=== PATIENT | female | born 1935 | race Caucasian/White ===

== ENCOUNTER 2016-07-17 14:36 | Emergency (ER) | payer MEDICARE, OTHER ==
[~2016-07-17 14:36] MED LIST: ASPIRIN PO; DARVOCET-N 1001 TAB PO; FIORINAL CAPSUL1 CAP PO; HCTZ PO; LORTAB 2.5/5001 TAB PO; NEXIUM PO; PREMPRO PO; PROPRANOLOL PO
== END 2016-07-17 14:45 | disposition home or self-care (01) ==
LOC: CED 14:36
DX: L03.113 Cellulitis of right upper limb (principal); J44.9 Chronic obstructive pulmonary disease, unspecified; I10 Essential (primary) hypertension; Z88.2 Allergy status to sulfonamides
CPT/HCPCS: 99282

== ENCOUNTER 2016-09-24 18:19 | Inpatient (IN) | payer MEDICARE ==
--- NOTE | ~2016-09-24 | CR72 ---
[facility] A Service of [facility] & [facility] RADIOLOGY TEXT RESULTS PATIENT: JOSE FELIZ LOCATION: [place] [address]- : 35 UNIT #: [id number] AGE: [address]: Meliton Gaines MD SEX: F ORDER DR: [id number] [facility] [address] [place], [place] [address] [id number] MR#: [id number] Acc #: [id number] NAME: JOSE FELIZ : 1935 SEX: F STUDY DATE/TIME: 09/24/2016 19:23 UNIT: CEDOF ROOM: 18978 STUDY DESCRIPTION: CR Chest Single View Portable Attending Physician: Sam Amin M.D. Ordering Physician: Derrick Tineo M.D. Primary Care Physician: Lm Engel M.D. MEDICAL IMAGING REPORT This report is preliminary unless electronic signature is present EXAM Portable chest. HISTORY Shortness of air today. FINDINGS Moderately dense left basilar consolidation or atelectasis, and probable mild linear atelectasis or scarring in the right base. Probable small left pleural effusion. Cardiac and mediastinal contours are normal. Mild pleural thickening in the lung apices. Peripherally calcified breast implants. IMPRESSION Moderate left basilar infiltrate or atelectasis and small left pleural effusion. Probable mild linear atelectasis or scarring in the lateral right base. Dictated by... Rigo Tello M.D. THIS IS AN ELECTRONICALLY VERIFIED REPORT Rigo Tello M.D. at 09/25/2016 1:10 PM SUZANNE/tr TD: 09/24/2016 23:36 JOB #: [id number] MEDICAL IMAGING REPORT Page 1 of 1 COPY
--- NOTE | ~2016-09-24 | HP ---
Unit #: [id number] #: [id number] Patient: JOSE FELIZ [id number] [address] [place], [place] [address] [id number] MR#: [id number] NAME: JOSE FELIZ. ROOM: 325 Age: 81 Sex: F Admission Date: 09/24/2016 : 1935 Attending Physician: Meliton Gaines M.D. Primary Care Physician: Lm Engel M.D. HISTORY AND PHYSICAL CHIEF COMPLAINT Weakness, hurt all over, body ache, fever, chills, shortness of breath, and cough. DISCUSSION This is an 81-year-old very pleasant female, with past medical history of hypertension, mitral valve prolapse, history of peripheral vascular disease with right carotid stenosis, 80%, migraine, insomnia, history of pemphigus vulgaris, insomnia. She presented to the emergency room with chief complaint of not feeling very well since last Monday. She said she went to see her primary doctor on Monday, was diagnosed with urinary tract infection, given Augmentin with no better increasing generalized weakness, shortness of breath, chills, productive cough mostly dry cough and not eating, drinking, does not have appetite, and feels sick and weak and came to the emergency room. On workup in the ER she was found to be sodium 121, potassium 2.6, BUN 41, creatinine 1.3, chest x-ray questionable left lower lobe infiltrate, and eventually been admitted. She said she has some nausea, vomiting today, she denies diarrhea, loss of consciousness, headache, dizziness, or any other complaint. PAST MEDICAL HISTORY 1. History of hypertension. 2. Mitral valve prolapse. 3. History of peripheral vascular disease with right carotid stenosis 80% as per her. 4. History of migraine. 5. Insomnia. 6. History of pemphigus vulgaris. 7. History of gastroesophageal reflux disease. PAST SURGICAL HISTORY 1. History of bunionectomy. 2. Tonsillectomy. 3. History of breast augmentation. ALLERGIES She is allergic to sulfa. MEDICATIONS FROM HOME She takes: 1. Norvasc 10 mg daily 2. ProctoCream-HC p.r.n. basis 3. Azathioprine 50 mg daily 4. Propranolol 10 mg three times daily Unit #: [id number] #: [id number] Patient: JOSE FELIZ 5. Plavix 75 mg daily 6. Nexium 40 mg daily SOCIAL HISTORY She denies smoking. She says she drinks alcohol socially. FAMILY HISTORY Noncontributory. REVIEW OF SYSTEMS All review of systems negative except in the history of present illness. PHYSICAL EXAMINATION GENERAL: Elderly female lying in the bed comfortably, currently not in any distress. She is alert, awake, and oriented x3, comfortable, not in any distress. VITAL SIGNS: Current vitals are the following, heart rate 98, respiratory rate 16, blood pressure 114/56. HEENT EXAMINATION: Pupils equal reactive to light and accommodation. Head: Normocephalic and atraumatic. NECK: Supple. No jugular venous distention. HEART: S1 and S2, regular rate and rhythm, 2/6 systolic murmur. LUNGS: Decreased air entry with a few left basal crackles. ABDOMEN: Soft, nontender, and nondistended. Bowel sounds are positive. EXTREMITIES: Inspection normal. No cyanosis, no clubbing, and no edema. NEUROLOGIC: Cranial nerves II through XII intact, no focal neurologic deficit. PSYCH: Normal mood and affect. DIAGNOSTIC STUDIES LABORATORY: Laboratory workup is the following, CBC, white count 7.9, hemoglobin 11, hematocrit 33, platelets 143, troponin less than 0.05, lactic acid level 0.9, chemistry, sodium 121, potassium 2.6, chloride 91, glucose 143, BUN 14, creatinine 1.3, total protein 5.3, albumin 2.4, LFT within normal limits. IMAGING: Chest x-ray shows small left pleural effusion and questionable left base infiltrate. ASSESSMENT/PLAN 1. Hyponatremia, start the patient on IV fluids, normal saline, will check TSH in the morning. 2. Hypokalemia, replace, check magnesium level. 3. Acute kidney injury, will give IV normal saline, repeat labs in the morning. 4. Pneumonia with small left pleural effusion, questionable left basal infiltrate, start on IV Rocephin and Zithromax, try to get a sputum culture. 5. History of hypertension/mitral valve prolapse, continue Norvasc. 6. History of gastroesophageal reflux disease, continue Nexium. 7. History of migraines, continue propranolol. 8. Insomnia, takes Valium at nighttime on p.r.n. basis. 9. History of pemphigus vulgaris on azathioprine. 10. History of peripheral vascular disease with carotid stenosis 80%, as per her on right side. 11. DVT prophylaxis, will place the patient on Lovenox. Unit #: [id number] #: [id number] Patient: JOSE FELIZ Dictated by Liz Blanco TD: 09/25/2016 13:42 JOB #: [id number] HISTORY AND PHYSICAL Page 1 of 1 X X HISTORY AND PHYSICAL
--- NOTE | ~2016-09-24 | EKG ---
PATIENT: JOSE FELIZ UNIT #: [id number] Ventricular Rate: 92 BPM Atrial Rate: 92 BPM P-R Interval: 144 ms QRS Duration: 84 ms Q-T Interval: 370 ms QTC Calculation(Bezet): 457 ms P [place]: 91 degrees Calculated R [place]: -21 degrees Calculated T [place]: 21 degrees Diagnosis Line: Sinus rhythm with Premature atrial complexes with Diagnosis Line: Aberrant conduction Diagnosis Line: Premature ventricular complexes Diagnosis Line: When compared with ECG of 13-DEC-2013 11:43, Diagnosis Line: Aberrant conduction is now Present VS PVCs Diagnosis Line: Confirmed by LATOSHA SHULTZ MD ([id number]) on Diagnosis Line: 09/25/2016 11:10:11 AM INTERPRETING NATE STERLING
--- NOTE | ~2016-09-24 | DS ---
Unit #: [id number] #: [id number] Patient: JOSE FELIZ [id number] [facility] [address] [place], [place] [address] [id number] I MR#: [id number] NAME: JOSE FELIZ. ROOM: [facility] Age: 81 Sex: F Admission Date: 09/24/2016 : 1935 Discharge Date: 09/27/2016 Attending Physician: Meliton Gaines M.D. Primary Care Physician: Lm Engel M.D. DISCHARGE SUMMARY REVISED REPORT SEE ADDENDUM DIAGNOSES ON ADMISSION 1. Pneumonia. 2. Hyponatremia. 3. Hypokalemia. 4. Acute kidney injury. DIAGNOSES ON DISCHARGE 1. Left lower lobe pneumonia. 2. Hyponatremia. 3. History of mitral valve prolapse. 4. Hypertension. 5. Peripheral vascular disease with right carotid artery stenosis. 6. History of migraine headache. 7. Gastroesophageal reflux disease. 8. History of pemphigus vulgaris. DIAGNOSTIC STUDIES LABORATORY: Patient's urine culture was negative. Blood cultures did not reveal any growth so far. Patient's TSH is 0.36. Creatinine is 0.9, sodium 131, potassium 4.2. WBC 9.2, hemoglobin 10.8, platelet count is 160,000. IMAGING: Chest x-ray revealed left lower lobe infiltrate or atelectasis due to small pleural effusion. HOSPITAL COURSE An 81-year-old patient presented to [facility] with weakness. Details are as per admission H and P. The patient was diagnosed with pneumonia and was treated with IV antibiotics. Patient is feeling much better and is afebrile. Hyponatremia: Patient's sodium was treated with IV fluids. Her sodium is much better now and she is feeling better. Today patient is comfortable. She wants to go home. PHYSICAL EXAMINATION HEENT: Revealed no conjunctival congestion. Sclerae nonicteric. NECK: Supple. Trachea is central. Unit #: [id number] #: [id number] Patient: JOSE FELIZ RESPIRATORY: Revealed decreased breath sounds bilaterally. There are no wheezes or crackles. HEART: Regular rate and rhythm. S1, S2. ABDOMEN: Soft, nontender. Bowel sounds are present in all four quadrants. NEUROLOGIC: The patient is alert to person, place, and time. Strength is 5/5 bilaterally. SKIN: Warm and dry. Dictated by... Liz Arechiga/danilo TD: 09/26/2016 16:01 JOB #: [id number] ADDENDUM PHYSICAL EXAMINATION VITAL SIGNS: The patient's vital signs today reveal temperature of 98 degrees, pulse 86 per minute, respiratory rate is 18 per minute, blood pressure is 122/58. GENERAL: The patient is comfortable and is anxious to go home today. RECOMMENDATIONS ON DISCHARGE 1. Condition is stable. 2. Activity is as tolerated. DISCHARGE MEDICATIONS 1. Tylenol 650 mg p.o. q.6 hours p.r.n. over the counter. 2. Imuran 50 mg p.o. daily. 3. Valium 10 mg p.o. daily p.r.n. anxiety, which is a home medication. 4. Norvasc 10 mg p.o. daily. 5. Propranolol 10 mg p.o. t.i.d. 6. Plavix 75 mg p.o. daily. 7. Nexium 40 mg p.o. daily. 8. Omnicef 300 mg p.o. daily for 1 week. FOLLOWUP 1. The patient is advised to follow up with primary care physician in 1 week and have a CBC and BMP done for followup on hyponatremia. 2. The patient is advised to call primary care physician or go to ER if her condition changes. 3. The patient is advised to have yogurt with breakfast every day for one week while on antibiotics for probiotic effect. NOTE: The plan was discussed in detail with the patient and her son. Dictated by... Liz Arechiga TD: 09/27/2016 16:25 Unit #: [id number] #: [id number] Patient: JOSE FELIZ JOB #: [id number] DISCHARGE SUMMARY Page 1 of 1 X Meliton Gaines MD X DISCHARGE SUMMARY
[2016-09-24 19:37] LABS: BASOPHIL% 0.2 % (0-2.5); EOSINOPHIL# 0.1 X10e3 (0-0.7); EOSINOPHIL% 1.4 % (0.0-7.0); HEMATOCRIT 33.1 % (35.0-45.0); HEMOGLOBIN 11.5 gm/dL (12.0-16.0); LYMPHOCYTE# 0.3 X10e3 (1.0-3.5); LYMPHOCYTE% 3.9 % (17.0-45.0); MEAN CELL VOLUME 102.3 FL (83-96); MEAN CORPUSCULAR HEMOGLOBIN 35.6 PG (28-34); MEAN CORPUSCULAR HGB CONC 34.8 g/dL (30-36); MEAN PLATELET VOLUME 8.1 FL (6.5-11.5); MONOCYTE# 0.6 X10e3 (0-1.0); NEUTROPHIL# 6.9 X10e3 (1.5-7.1); NEUTROPHIL% 87.5 % (40-75); PLATELET COUNT 143 X10e3 (140-420); RED BLOOD COUNT 3.24 X10e (3.90-5.30); RED CELL DISTRIBUTION WIDTH 15.8 % (11.0-15.5); WHITE BLOOD COUNT 7.9 X10e3 (4.0-10.5)
[2016-09-24 19:40] LABS: DIFF IND NO
[2016-09-24 19:52] LABS: POC - CKMB <1.0 ng/mL (0.0-7.9); POC - TROPONIN <0.05 ng/mL (<=0.05)
[2016-09-24 20:07] LABS: ALBUMIN SERUM 2.3 g/dL (3.5-5.0); BILIRUBIN, DIRECT 0.1 mg/dL (0.0-0.2); BILIRUBIN,TOTAL 1.1 mg/dL (0.2-2.0); BUN/CREATININE RATIO 31.53; CALCIUM SERUM 8.7 mg/dL (8.4-10.2); CREATININE SERUM 1.3 mg/dL (0.6-1.4); GLOM FILT RATE Estimated 38.4 mL/min (>60); PROTEIN TOTAL SERUM 5.3 g/dL (6.0-8.3)
[2016-09-24 20:10] LABS: POTASSIUM 2.6 mmol/L (3.5-5.1)
[2016-09-24] MEDS ORDERED: AZATHIOPRINE50 M2 PO (20:37)
[2016-09-24] MEDS ORDERED: PROPRANOLOL PO (20:37)
[2016-09-24] MEDS ORDERED: CLOPIDOGREL75 MG PO (20:37)
[2016-09-24] MEDS ORDERED: VALIUM10 MG PO (20:38)
[2016-09-24] MEDS ORDERED: NEXIUM PO (20:38)
[2016-09-24] MEDS ORDERED: NORVASC10 MG PO (20:40)
[2016-09-24] MEDS ORDERED: PROCTOCREAM-HC30 GM PR (20:40)
[2016-09-24 20:41] LABS: URINE SOURCE CLEAN CATCH
[2016-09-24 20:45] LABS: URINE APPEARANCE CLEAR; URINE BLOOD 2+ (NEG); URINE COLOR ORANGE; URINE GLUCOSE NEG (NEG); URINE KETONE NEG (NEG); URINE LEUKOCYTE ESTERASE 1+ (NEG); URINE NITRATE POS (NEG); URINE PH 5.5 (5-8); URINE PROTEIN 2+ (NEG)
[2016-09-24 20:47] LABS: CULTURE INDICATED? YES; URINE BACTERIA AUWI NEG (NEGATIVE); URINE SQUAMOUS EPITHELIAL CELL OCC /[HPF]
[2016-09-24 20:49] LABS: URINE BILIRUBIN NEG (NEG)
[2016-09-25 08:48] LABS: CALCIUM SERUM 8.9 mg/dL (8.4-10.2); GLOM FILT RATE Estimated 52.8 mL/min (>60); POTASSIUM 3.9 mmol/L (3.5-5.1)
[2016-09-26 07:25] LABS: CALCIUM SERUM 8.8 mg/dL (8.4-10.2); CREATININE SERUM 0.9 mg/dL (0.6-1.4); POTASSIUM 4.2 mmol/L (3.5-5.1)
[2016-09-26 08:54] LABS: HEMATOCRIT 32.6 % (35.0-45.0); HEMOGLOBIN 10.8 gm/dL (12.0-16.0); MEAN CELL VOLUME 104.9 FL (83-96); MEAN CORPUSCULAR HEMOGLOBIN 34.9 PG (28-34); MEAN CORPUSCULAR HGB CONC 33.3 g/dL (30-36); MEAN PLATELET VOLUME 7.9 FL (6.5-11.5); RED BLOOD COUNT 3.1 X10e (3.90-5.30); RED CELL DISTRIBUTION WIDTH 16.2 % (11.0-15.5); WHITE BLOOD COUNT 9.2 X10e3 (4.0-10.5)
[2016-09-27] MEDS ORDERED: ACETAMINOPHEN325 MG PO (13:47)
[2016-09-27] MEDS ORDERED: OMNICEF300 M1 PO (13:49)
== END 2016-09-27 15:14 | disposition home or self-care (01) | DRG 682 ==
LOC: CED 18:19 → C3A PCU 21:30 → CEDOF 21:30 → CED 21:45 → C3A PCU 21:45 → CEDOF 09-25 00:39 → C3A PCU 09-25 06:00
PROVIDERS: Emergency Medicine; Internal Medicine
DX: N17.9 Acute kidney failure, unspecified (principal); J18.9 Pneumonia, unspecified organism; J90 Pleural effusion, not elsewhere classified; I73.9 Peripheral vascular disease, unspecified; I34.1 Nonrheumatic mitral (valve) prolapse; E87.1 Hypo-osmolality and hyponatremia; J98.11 Atelectasis; L10.0 Pemphigus vulgaris; I10 Essential (primary) hypertension; K21.9 Gastro-esophageal reflux disease without esophagitis; E87.6 Hypokalemia; G47.00 Insomnia, unspecified; I65.21 Occlusion and stenosis of right carotid artery; Z79.01 Long term (current) use of anticoagulants; Z88.2 Allergy status to sulfonamides; R00.0 Tachycardia, unspecified
CPT/HCPCS: 36415; 71010; 80048; 80076; 81003; 82553; 83605; 83735; 84443; 84484; 85025; 85027; 87040; 87077; 87086; 87186; 93005; 94640; 94760; 96361; 96374; 96375; 97110; 97116; 97162; 97166; 97530; 99285; G8987-GO; G8988-GO; G8989-GO; G8990-GP; G8991-GP; J0456; J0696; J1650; J2405; J2930

== ENCOUNTER → 2016-11-17 | Outpatient (CLI) | payer MEDICARE, OTHER ==
[~2016-11-17] MED LIST changes: +ACETAMINOPHEN325 MG PO; +AZATHIOPRINE50 M2 PO; +CLOPIDOGREL75 MG PO; +NORVASC10 MG PO; +OMNICEF300 M1 PO; +PROCTOCREAM-HC30 GM PR; +VALIUM10 MG PO
--- NOTE | ~2016-11-17 | US37 ---
[facility] A Service of [facility] & [facility] RADIOLOGY TEXT RESULTS PATIENT: JOSE FELIZ LOCATION: [facility] : 35 UNIT #: [id number] AGE: [address]: Lm Engel MD SEX: F ORDER DR: [id number] [place] [id number] MR#: [id number] Acc #: [id number] NAME: JOSE FELIZ : 1935 SEX: F STUDY DATE/TIME: 11/17/2016 9:59 UNIT: SNIV ROOM: STUDY DESCRIPTION: US Carotid W/Doppler Bilateral Attending Physician: Lm Engel M.D. Referring Physician: Lm Engel M.D. Ordering Physician: Lm Engel M.D. Primary Care Physician: Lm Engel M.D. MEDICAL IMAGING REPORT This report is preliminary unless electronic signature is present. EXAM Carotid Doppler INDICATIONS Vertigo, patient has had a prior abnormal carotid Doppler which showed greater than 70% stenosis on the right. TECHNIQUE Bilateral carotid ultrasound examination was performed using sanches-scale spectral Doppler and color-flow Doppler imaging. Carotid flow was assessed using standards based on NASCET methodology. FINDINGS Ultrasound examination of the carotid arteries shows some mild plaque within the proximal common carotid arteries, with more significant plaque identified more distally within the left common carotid artery. Extensive calcified plaque is noted at the carotid bifurcations bilaterally and extending into the internal carotid arteries. Doppler evaluation shows elevated peak systolic flow velocity in the right internal carotid artery measuring up to 317 cm/sec indicating a flow-limiting stenosis greater than 70% but less than near occlusion. The patient's internal carotid to common carotid artery ratio is also elevated at 3.6. Doppler evaluation also shows elevated peak systolic flow velocity in the left internal carotid artery measuring up to 196 cm/sec indicating a flow-limiting stenosis of 50% to 69%. Internal carotid to common carotid artery ratio on the left is 2.4. Vertebral arteries appear to be patent bilaterally. They appeared to show antegrade flow. IMPRESSION 1. Right internal carotid artery stenosis of greater than 70% but less than near occlusion. 2. 50% to 69% stenosis of the left internal carotid artery. 3. Patient does appear to have antegrade flow within both vertebral STS. [facility] A Service of [facility] & [facility] RADIOLOGY TEXT RESULTS PATIENT: JOSE FELIZ LOCATION: [facility] : 35 UNIT #: [id number] AGE: [address]: Lm Engel MD SEX: F ORDER DR: arteries. Similar findings were present on the patient's prior carotid Doppler from June 14, 2013. Dictated by... Hayley Rosado M.D. THIS IS AN ELECTRONICALLY VERIFIED REPORT Hayley Rosado M.D. at 11/17/2016 5:19 PM AFF/rnr TD: 11/17/2016 16:42 JOB #: [id number] MEDICAL IMAGING REPORT Page 1 of 1
== END | disposition home or self-care (01) ==
LOC: SNIV 09:59
DX: R42 Dizziness and giddiness (principal); I65.23 Occlusion and stenosis of bilateral carotid arteries
CPT/HCPCS: 93880